=== PATIENT | female | born 1985 | race Caucasian/White ===

== ENCOUNTER 2017-10-27 20:08 | Inpatient (IN) | payer OTHER ==
[~2017-10-27] VITALS: Ht 165.1 cm; Wt 95.3 kg
--- NOTE | 2017-10-27 21:13 | History & Physical ---
General Information and HPI MD Statement: I have seen and personally examined [address] and documented this H&P. Source of Information: patient, old records Exam Limitations: no limitations History of Present Illness: The patient is a 32 year old at 39 weeks and 3 days gestation who presented with a chief complaint of painful ctx. No lof / vb. +FM. AP care uncomplicated. GBS neg. s/p Rhogam for Rh neg. 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 : 2 Para: 1 Last Menstrual Period: 01/24/17 Estimated Delivery Date: 10/31/17 Past ip litigation associate History: non-contributory Past Pregnancies Past Pregnancies: Date of Delivery: 11/10 Gestational Age: 38 Length of Labor: 8 hrs Weight: 6# 13 Type of Delivery: vaginal Anesthesia: none Place of Delivery: [facility] Complications: none Medical History Blood Transfusion Hx: No Neurological: NONE EENT: NONE Cardiovascular: NONE Respiratory: NONE Gastrointestinal: NONE Hepatic: NONE Renal: NONE Musculoskeletal: NONE Psychiatric: NONE Endocrine: thyroid nodule, nl TFT Blood Disorders: NONE Cancer(s): NONE 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 No Contractions: q 2 #1 - FHR Baseline: 120 Category: 2 Estimated Weight: 3600 Presentation: vtx Patient for Induction? No Labs Blood Type & Rh: B neg Antibody Screen: neg Hct/Hgb & Platelets #1: 13.4/ 42.8, 195 Hct/Hgb & Platelets #2: 12.1/ 38.1, 201 Rubella: imm VDRL #1: neg VDRL #2: neg HbsAg: neg HIV #1: neg HIV #2 neg 1 Hr P Group B Strep: neg Initial Ultrasound: 03/24/17 siup 8+3 Anatomy Ultrasound: 06/30/17 22+3 nl laura, plac post Genetic Testing: hgb AA, CF neg declined 1st trim screen Assessment/Plan Assessment/Plan: 32yo @ 39+ wks in active labor, GBS neg, and maternal status reassuring -admit -expectant mgmt -ansvd As Ranked By This Provider Problem List: 1. Core Measures Venous Thromboembolism VTE Risk Factors / No Mechanical VTE Prophylaxis d/t Early Ambulation No VTE Pharm Prophylaxis d/t LowRisk-No Interven Req'd
[2017-10-27 21:16] VITALS: BP 124/73
--- NOTE | 2017-10-27 21:18 | Labor & Delivery Summary ---
Delivery Summary Vaginal Delivery: Vaginal: spontaneous Episiotomy/Lacerations: Episiotomy/Lacerations: hemostatic small periurethral Placenta: Placenta: spontanteous, normal, 3 vessel Anesthesia: none Baby's Weight: 7#12 Apgars - 1 Min: 9 Apgars - 5 Min: 9 Additional Comments: Pt progressed quickly from 8cm at presentation to FD and pushing. Controlled of live female over intact perineum from [facility]. Body delivered w/o difficulty and placed on mom's chest. Spontaneous cry noted. Cord clamped and cut. 3vc plac del spont intact. Small periurethral lac noted, hemostatic. No repair needed. Fundus contracted. EBL 200cc. Pt giovanna well. Baby w/ mom.
[2017-10-27 21:28] LABS: ABSOLUTE BASOPHIL COUNT 0.1 /CUMM (0.0-0.2); ABSOLUTE EOSINOPHIL COUNT 0.1 /CUMM (0.0-0.7); ABSOLUTE GRANULOCYTE CT 11.9 /CUMM (1.4-6.5); ABSOLUTE LYMPH COUNT 1.7 /CUMM (1.2-3.4); ABSOLUTE MONOCYTE COUNT 0.4 /CUMM (0.10-0.60); BASOPHIL % 0.5 % (0.0-2.0); EOSINOPHIL % 0.6 % (0-5); HEMATOCRIT 39.5 % (37-47); MEAN CORPUSCULAR HGB 29.7 PG (27.0-31.0); MEAN CORPUSCULAR HGB CONC 33.3 G/DL (33.0-37.0); MEAN PLATELET VOLUME 9.6 FL (7.4-10.4); PLATELET COUNT 199 /CUMM (130-400); RBC DISTRIBUTION WIDTH 14.6 % (11.5-14.5); RED BLOOD CELL CT 4.44 /CUMM (4.20-5.40); WHITE BLOOD CELL COUNT 14.2 /CUMM (4.8-10.8)
[2017-10-27 22:30] LABS: GRANULOCYTE % 83.6 % (42.2-75.2)
[2017-10-28 08:40] LABS: ABSOLUTE BASOPHIL COUNT 0 /CUMM (0.0-0.2); ABSOLUTE EOSINOPHIL COUNT 0.1 /CUMM (0.0-0.7); ABSOLUTE GRANULOCYTE CT 11.1 /CUMM (1.4-6.5); ABSOLUTE LYMPH COUNT 1.4 /CUMM (1.2-3.4); ABSOLUTE MONOCYTE COUNT 0.5 /CUMM (0.10-0.60); BASOPHIL % 0.1 % (0.0-2.0); EOSINOPHIL % 0.5 % (0-5); HEMATOCRIT 39.5 % (37-47); MEAN CORPUSCULAR HGB 29.7 PG (27.0-31.0); MEAN CORPUSCULAR HGB CONC 33.6 G/DL (33.0-37.0); MEAN CORPUSCULAR VOLUME 88.3 FL (81.0-99.0); MEAN PLATELET VOLUME 9.9 FL (7.4-10.4); PLATELET COUNT 179 /CUMM (130-400); RBC DISTRIBUTION WIDTH 14.7 % (11.5-14.5); RED BLOOD CELL CT 4.47 /CUMM (4.20-5.40); WHITE BLOOD CELL COUNT 13.1 /CUMM (4.8-10.8)
[2017-10-28 10:19] LABS: GRANULOCYTE % 84.6 % (42.2-75.2)
--- NOTE | 2017-10-28 10:30 | PN- OBGYN ---
Surgical Brief Attending Note Brief Attending Note: pt feeling well. mild cramps. amb / void / giovanna po. afeb, v/ss nad abd soft nt ff zaira min lochia ext nt no ed hct 39 ppd 1 s/p precip , doing well, desires d/c home today -routine pp care -d/c home for tonight pending baby d/c -d/c instructions reviewed -rto 6 wks
[2017-10-28] MEDS ORDERED: IBUPROFEN800 M1 PO (10:32)
== END 2017-10-28 21:55 | DRG 775 ==
LOC: CBCO 20:08 → GNO 20:25
PROVIDERS: Obstetrics & Gynecology
PROC: 10E0XZZ Delivery of Products of Conception, External Approach (ICD-10-PCS; principal; 2017-10-27)
DX: O71.82 Other specified trauma to perineum and vulva (principal); Z37.0 Single live birth; Z3A.39 39 weeks gestation of pregnancy
CPT/HCPCS: GNOS; 36415; J2790; J3490; J7120